=== PATIENT | female | born 2000 | race Caucasian/White ===

== ENCOUNTER → 2019-01-03 | Outpatient (CLI) | payer OTHER ==
--- NOTE | 2019-01-03 08:24 | US ---
EXAMINATION TYPE: US abdomen complete DATE OF EXAM: 01/03/2019 COMPARISON: NONE CLINICAL HISTORY: R10.11 Rt upper quadrant abd pain. Intermittent RUQ and right flank pain x 1 year, gotten worse in the past couple months EXAM MEASUREMENTS: Liver Length: 13.4 cm Gallbladder Wall: 0.2 cm CBD: 0.4 cm Spleen: 8.7 cm Right Kidney: 9.7 x 3.4 x 4.1 cm Left Kidney: 9.8 x 4.4 x 4.3 cm Pancreas: visualized portions wnl, limited by overlying midline bowel gas Liver: wnl Gallbladder: wnl Evidence for sonographic Bartholomew's sign: no CBD: wnl Spleen: wnl Right Kidney: wnl Left Kidney: wnl Upper IVC: wnl Abd Aorta: wnl The liver is homogenous. The intrahepatic portion of the IVC and proximal abdominal aorta are within normal limits. There is no evidence of cholelithiasis. Common bile duct is unremarkable. The visu alized portions of the pancreas are homogenous. The spleen is unremarkable. Kidneys are symmetric a nd free of hydronephrosis. No renal lesions are seen. IMPRESSION: Sonographic evidence of acute cholecystitis or cholelithiasis. In this patient with chron ic right upper quadrant pain HIDA scan with CCK could evaluate for biliary dyskinesia or chronic chol ecystitis.
== END | disposition home or self-care (01) ==
LOC: RADUSWWP 07:27
PROVIDERS: ATTEND Physician Assistant
DX: R10.11 Right upper quadrant pain (principal)
CPT/HCPCS: 76700

== ENCOUNTER → 2019-01-09 | Outpatient (CLI) | payer OTHER ==
--- NOTE | 2019-01-10 08:24 | NM ---
EXAMINATION TYPE: NM hepatobiliary w EF DATE OF EXAM: 01/09/2019 COMPARISON: Ultrasound abdomen 01/03/2019 HISTORY: Right upper quadrant abdominal pain TECHNIQUE: After the intravenous administration of 5.37 mCi Tc 99m Mebrofenin hepatobiliary scintigra phy is performed. Immediate images post injection. FINDINGS: There is satisfactory initial accumulation of tracer by the liver. The gallbladder is visualized wit hin 26 minutes. The small bowel activity is noted within 8 minutes. At one hour 8 ounces of oral en sure plus is given to mimic CCK and gallbladder ejection fraction is calculated at 80 %, in the giancarlo l range. Therefore there is no scintigraphic evidence of cystic or common bile duct obstruction to s uggest acute cholecystitis or gallbladder dyskinesia. IMPRESSION: Exam is within normal limits.
== END | disposition home or self-care (01) ==
LOC: RADNMMAIN 14:47
PROVIDERS: ATTEND Internal Medicine
DX: R10.11 Right upper quadrant pain (principal)
CPT/HCPCS: 78226; A9537

== ENCOUNTER → 2020-03-22 | Outpatient (CLI) | payer OTHER ==
--- NOTE | 2020-03-22 11:29 | CT ---
EXAMINATION TYPE: CT abdomen w con DATE OF EXAM: 03/22/2020 COMPARISON: NONE HISTORY: 19-year-old female Right upper quadrant pain TECHNIQUE: Contiguous axial scanning of the abdomen following administration of 100 ml Omnipaque 300 IV contrast. Delayed images through the kidneys and coronal/sagittal reconstructions performed. CT DLP: 501 mGycm Automated exposure control for dose reduction was used. FINDINGS: Heart normal size without pericardial effusion. Lung bases clear without pleural effusion. No focal liver lesion or biliary ductal dilatation. Portal venous system is patent. Gallbladder, adrenal glands, kidneys, spleen, and pancreas appear within normal limits. No dilated small bowel, free fluid, or free air. A few prominent but nonenlarged right lower quadrant mesenteric lymph nodes measuring up to 4 mm. No mesenteric or retroperitoneal lymphadenopathy. Oral contrast has progressed to the hepatic flexure. Multiple moderate stool is present. Appendix is outside the field of view. Pelvis is not imaged. Bones: No osseous destructive process. IMPRESSION: NO ACUTE INFLAMMATORY PROCESS IDENTIFIED IN THE UPPER OR MID ABDOMEN TO EXPLAIN THE PATIENT'S SYMPTOM S. PELVIS NOT IMAGED.
== END | disposition home or self-care (01) ==
LOC: RADCTMAIN 09:18
PROVIDERS: ATTEND Physician Assistant
DX: R10.11 Right upper quadrant pain (principal)
CPT/HCPCS: 74160; Q9967

== ENCOUNTER → 2020-04-26 | Outpatient (CLI) | payer OTHER ==
[2020-04-26 20:33] LABS: Gliadin AB IgA, Deaminated NEGATIVE (NEGATIVE); Gliadin AB IgA, Unit 0.4 U/mL; Gliadin AB IgG, Deaminated NEGATIVE (NEGATIVE)
== END | disposition home or self-care (01) ==
LOC: LABWHC1 12:28
PROVIDERS: ATTEND Physician Assistant
DX: R14.0 Abdominal distension (gaseous) (principal)
CPT/HCPCS: 36415; 83516